=== PATIENT | female | born 1945 | race Caucasian/White ===

== ENCOUNTER → 2021-07-12 | Outpatient (CLI) | payer OTHER | LOC: SJCVC 14:01 | PROVIDERS: ATTEND Internal Medicine | DX: R93.1 Abnormal findings on diagnostic imaging of heart and coronary circulation (principal); R06.00 Dyspnea, unspecified; E78.5 Hyperlipidemia, unspecified; I10 Essential (primary) hypertension; Z82.49 Family history of ischemic heart disease and other diseases of the circulatory system ==